=== PATIENT | female | born 1955 | race African-American/Black ===

== ENCOUNTER 2019-02-18 13:03 | Inpatient (IN) ==
[2019-02-18] MEDS ORDERED: BENADRYL IV ONE (13:39)
[2019-02-18] MEDS ORDERED: SOLU-MEDROL IV ONE (13:39)
[2019-02-18] MEDS ORDERED: NS 1,000 ML IV ONE (13:39)
[2019-02-18] MEDS ORDERED: TYLENOL PO ONE (13:47)
[2019-02-18] MEDS ORDERED: NS 500 ML IV ONE ×2 (13:47→14:59)
[2019-02-18 14:04] LABS: OCCULT BLOOD 1 POSITIVE (NEGATIVE)
[2019-02-18 14:08] LABS: AGAP 10; ALBUMIN 3.6 g/dL (3.5-5.0); ALKALINE PHOSPHATASE 167 U/L (32-104); BUN 7 mg/dL (8-22); CALCIUM 9.1 mg/dL (8.8-10.2); CHLORIDE 107 mmol/L (98-107); COSMO 275; CREATININE 0.7 mg/dL (0.5-0.9); ESTIMATED GFR > 60; GLUCOSE 95 mg/dL (70-104); GOT 27 U/L (10-30); POTASSIUM 3.9 mmol/L (3.5-5.1); SODIUM 139 mmol/L (136-145); TCO2 22 mmol/L (25-35); TOTAL PROTEIN 7.4 g/dL (6.3-8.3)
[2019-02-18 14:09] LABS: GPT 18 U/L (10-36)
[2019-02-18 14:45] LABS: BASO# 0.06 X1000 (0.0-0.2); BASO% 0.6 % (0.0-0.8); EOS# 0.08 X1000 (0.0-0.7); EOS% 0.9 % (0.0-10.0); HEMATOCRIT 13.2 % (37.0-47.0); HEMOGLOBIN 3.4 g/dL (12.0-16.0); IMM GRAN# 0.02 X1000 (0.0-0.04); IMM GRAN% 0.2 % (0.0-0.5); LYMPH% 39.4 % (20.5-51.1); MCH 22.2 PG (27-31); MCHC 25.8 g/dL (33-37); MCV 86.3 FL (81-99); MONO# 0.83 X1000 (0.11-0.59); MONO% 8.8 % (1.7-9.3); NEUT# 4.71 X1000 (1.4-6.5); NEUT% 50.1 % (42.2-75.2); PLT 219 X1000 (130-400); RBC 1.53 XMIL (4.2-5.4); RDW 18.7 % (11.5-14.5)
[2019-02-18 15:10] LABS: RETIC% 0.75 % (0.8-2.1); RETIC-HE 34.9 PG (28.2-36.6)
--- NOTE | 2019-02-18 15:12 | EKG Report ---
Test Performed on : 02/18/2019 1:27:53 PM Test Reason : syncope Blood Pressure : / mmHG Vent. Rate : 076 BPM Atrial Rate : 076 BPM P-R Int : 140 ms QRS Dur : 074 ms QT Int : 380 ms P-R-T Axes : 000 026 070 degrees QTc Int : 427 ms Normal sinus rhythm. Minimal voltage criteria for LVH, may be normal variant T wave abnormality, consider anterior ischemia Abnormal ECG When compared with ECG of 04-JAN-2018 09:33, T wave inversion now evident in Anterior leads Unconfirmed Result
--- NOTE | 2019-02-18 15:21 | PROVIDER DOCUMENTATION ---
This chart was entered by Mallory Moreau Scribe, acting as scribe for Morales Obrien MD. HPI-Syncope/Dizziness - General Chief Complaint: Syncope Stated Complaint: DIZZY / PASSED OUT Time Seen by Provider: 02/18/19 13:38 Source: patient, family Allergies/Adverse Reactions: Patient Allergies Allergy/AdvReac Type Severity Reaction Status Date / Time Penicillins AdvReac HIVES Verified 02/18/19 13:09 Home Medications: Home Medication List Medication Instructions Recorded Confirmed Last Taken Type Clonazepam 1 mg PO QHS 01/04/18 01/04/18 Unknown History Diphenhydramine [Benadryl] 25 mg PO QHS 01/04/18 01/04/18 Unknown History Escitalopram Oxalate [Lexapro] 20 mg PO DAILY 01/04/18 01/04/18 Unknown History Fluticasone/Salmet 250/50 INH 1 inh INH BID 01/04/18 01/04/18 Unknown History [Advair 250/50 Diskus] Gabapentin 600 mg PO QHS 01/04/18 01/04/18 Unknown History Pravastatin Sodium 40 mg PO QHS 01/04/18 01/04/18 Unknown History Ranitidine [Zantac] 150 mg PO DAILY 01/04/18 01/04/18 Unknown History Risperidone 3 mg PO QHS 01/04/18 01/04/18 Unknown History Tizanidine HCl 4 mg PO BID 01/04/18 01/04/18 Unknown History Trazodone HCl 150 mg PO QHS 01/04/18 01/04/18 Unknown History Albuterol Sulfate Inhaler 2 puff INH Q4H PRN PRN inhaler 01/06/18 Unknown Rx [Ventolin Hfa] Nicotine Patch [Nicoderm Patch] 21 mg TD DAILY PRN PRN patch.td24 01/06/18 Unknown Rx Pantoprazole [Protonix] 40 mg PO DAILY@0700 #30 tab 01/06/18 Unknown Rx Sucralfate [Carafate] 1 gm PO Q6H #120 tab 01/06/18 Unknown Rx - History of Present Illness-Syncope/Dizzy Nature of Presenting Problem: 64yof presents to ED cc syncope, dizziness, weakness and paleness well 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 Pt reports was outside and went to go inside, felt dizzy and fainted. Pt also reports a cough that she had had for months. Pt has had a blood transfusion 6 months ago. Pt has hx of COPD, HTN and anemia. Pt is afebrile and in no apparent distress upon exam. Onset/Duration: reports: just prior to arrival Timing: reports: still present Position/Activity at time of episode: reports: standing, activity Symptoms prior to episode: reports: lightheaded Context: reports: collapsed Loss of Consciousness: no loss of consciousness Location of injury. (If syncope resulted in an injury.): reports: RLE (small abrasion on payne), LLE (small abrasion on payne) Current Symptoms: reports: weakness, lightheaded, dizzy, pale Recently Seen Here or By Another Healthcare Provider: No - Dizziness Severity in ED: reports: mild Dizziness Related Current/Associated Symptoms: reports: weakness, lightheaded, dizzy, pale Modifying Factors: improves with: standing position Patient usually:: reports: walks without assistance Review of Systems - Adult - REVIEW OF SYSTEMS - ADULT Constitutional: reports: see HPI, fatique. denies: chills, fever Eyes: reports: no symptoms reported Ears, Nose, Mouth & Throat: reports: no symptoms reported Cardiovascular: reports: no symptoms reported Respiratory: reports: see HPI, cough. denies: shortness of breath Gastrointestinal: reports: no symptoms reported Genitourinary: reports: no symptoms reported Musculoskeletal: reports: no symptoms reported Integumentary: reports: no symptoms reported Neurological: reports: see HPI, dizziness/vertigo, syncope Psychiatric: reports: no symptoms reported Endocrine: reports: no symptoms reported Hematologic/Lymphatic: reports: no symptoms reported Allergic/Immunologic: reports: no symptoms reported All Other Systems: Reviewed and Negative Past History - Adult - PAST MEDICAL HISTORY-ADULT Review of Records: reports: Nursing Assessment Review, Medications Reviewed, Social history reviewed & non-contributory. Major Childhood Illnesses: reports: denies history Cardiovascular: reports: HTN, hyperlipidemia Respiratory: reports: COPD Gastrointestinal: reports: GERD Obstetrical/Gynecological: reports: denies history Genitourinary: reports: denies history Musculoskeletal: reports: denies history Neurological: reports: denies history Endocrine/Immune: reports: denies history, other (acute anemia and transfusions within past 6 months) Other Conditions: reports: denies history - PRIOR SURGERIES/PROCEDURES Surgical/Procedure History: reports: hysterectomy, BTL - IMMUNIZATION STATUS Childhood Immunizations: See Nurse Assessment Flu Vaccine: See Nurse Assessment - FAMILY HISTORY Family History: reviewed, not pertinent Physical Exam-General - PHYSICAL EXAM-ADULT Initial Vital Signs Reviewed: Yes - CONSTITUTIONAL General Appearance: appears well, alert, no apparent distress, thin. negative: anxious, combative - EYES Eyes: PERRL/EOMI, pale conjunctivae. negative: photophobia - HEAD, EARS, NOSE, MOUTH & THROAT HENMT: normocephalic/atraumatic, moist mucous membranes, normal ENT inspection. negative: angioedema - NECK Neck: non-tender, full range of motion, supple, normal inspection. negative: C- spine tenderness - RESPIRATORY Respiratory: chest non-tender, lungs clear, normal breath sounds. negative: wheezing - CARDIOVASCULAR Cardiovascular: normal peripheral pulses, regular rate, rhythm. negative: bradycardia, tachycardia - GASTROINTESTINAL (ABDOMEN) Abdominal Exam: normal bowel sounds, non tender, soft. negative: rebound - MUSCULOSKELETAL Extremity: normal inspection. negative: deformity - SKIN Integumentary: abrasion(s) (small, to both shins). negative: diaphoresis, ecchymosis - NEUROLOGIC Neurologic: baffle mounter II-XII nml as tested, grossly normal. negative: facial droop, focal weakness, motor weakness, sensory deficit - PSYCHIATRIC Psych/Mental Status: normal mood/affect, oriented x 3. negative: anxious, disheveled Progress - PLAN OF CARE/RESULTS Progress/Plan/Lab Results: Vital Signs - 8 hr 02/18/19 13:05 Temperature 98.6 F Pulse Rate 80 Respiratory Rate 18 Blood Pressure 81/32 O2 Sat by Pulse Oximetry 100 Laboratory Results - last 24 hr 02/18/19 02/18/19 02/18/19 13:25 13:25 13:25 WBC 9.40 RBC 1.53 L Hgb 3.4 L* Hct 13.2 L MCV 86.3 MCH 22.2 L MCHC 25.8 L RDW Std Deviation 18.7 H Plt Count 219 MPV 12.0 H Immature Gran % (Auto) 0.2 Neut % (Auto) 50.1 Lymph % (Auto) 39.4 [place] % (Auto) 8.8 Eos % (Auto) 0.9 Baso % (Auto) 0.6 Immature Gran # (Auto) 0.02 Neut # (Auto) 4.71 Lymph # (Auto) 3.70 H [place] # (Auto) 0.83 H Eos # (Auto) 0.08 Baso # (Auto) 0.06 Percent Retic 0.75 L Retic Hgb Equivalent 34.9 Sodium 139 Potassium 3.9 Chloride 107 Carbon Dioxide 22 L Anion Gap 10 BUN 7 L Creatinine 0.7 Estimated GFR/1.73 m2 > 60 BUN/Creatinine Ratio 10 Glucose 95 Calculated Osmolality 275 Calcium 9.1 Total Bilirubin 0.30 AST 27 ALT 18 Alkaline Phosphatase 167 H Total Protein 7.4 Albumin 3.6 Globulin 4.0 Albumin/Globulin Ratio 1.0 Stool Occult Blood 02/18/19 13:40 WBC RBC Hgb Hct MCV MCH MCHC RDW Std Deviation Plt Count MPV Immature Gran % (Auto) Neut % (Auto) Lymph % (Auto) [place] % (Auto) Eos % (Auto) Baso % (Auto) Immature Gran # (Auto) Neut # (Auto) Lymph # (Auto) [place] # (Auto) Eos # (Auto) Baso # (Auto) Percent Retic Retic Hgb Equivalent Sodium Potassium Chloride Carbon Dioxide Anion Gap BUN Creatinine Estimated GFR/1.73 m2 BUN/Creatinine Ratio Glucose Calculated Osmolality Calcium Total Bilirubin AST ALT Alkaline Phosphatase Total Protein Albumin Globulin Albumin/Globulin Ratio Stool Occult Blood POSITIVE A Orders Category Date Time Status Cardiac Monitoring DIRECTED Care 02/18/19 13:12 Active Nursing- MD Consult Request ROUTINE Care 02/18/19 15:02 Active Orthostatic Vital Signs NOW Care 02/18/19 13:14 Active Saline Loc NOW Care 02/18/19 13:15 Active Transfuse .Give-Transfuse Care 02/18/19 13:47 Active Transfuse .Give-Transfuse Care 02/18/19 14:59 Active Physician/Provider Consults Routine Cons 02/18/19 15:[address] ABDOMEN/PELVIS W/WO CONTRAS [CT] Stat Exams 02/18/19 14:58 Ordered CBC WITH DIFF [HEME] Stat Lab 02/18/19 13:25 Results CBC WITH NO DIFF [HEME] Timed Lab 02/18/19 21:00 Ordered CMP [COMPREHENSIVE METABOLIC PANEL] [CHEM] Stat Lab 02/18/19 13:25 Completed FERRITIN Stat Lab 02/18/19 13:25 Received FOLATE Stat Lab 02/18/19 13:25 Received LDH [CHEM] Stat Lab 02/18/19 13:25 Received LRPC (RED CELLS) [BBK] Stat Lab 02/18/19 13:25 Received OCCULT BLOOD SCREEN STOOL PL Stat Lab 02/18/19 13:40 Completed RETIC COUNT [HEME] Stat Lab 02/18/19 13:25 Completed TYPE & SCREEN [BBK] Stat Lab 02/18/19 13:25 Received UIBC W TOTAL IRON [CHEM] Stat Lab 02/18/19 13:25 Received VITAMIN B12 Stat Lab 02/18/19 13:25 Received 0.9% Sodium Chloride Inj [Ns] 1,000 ml Med 02/18/19 13:39 Discontinued IV 999 mls/hr 0.9% Sodium Chloride Inj [Ns] 500 ml Med 02/18/19 13:47 Discontinued IV As Directed mls/hr 0.9% Sodium Chloride Inj [Ns] 500 ml Med 02/18/19 14:59 Discontinued IV As Directed mls/hr Acetaminophen [Tylenol] Med 02/18/19 13:47 Discontinued 650 mg PO PREMED ONE Diphenhydramine [Benadryl] Med 02/18/19 13:39 Discontinued 25 mg IV NOW ONE Methylprednisolone Sod Succ [Solu-Medrol] Med 02/18/19 13:39 Discontinued 80 mg IV NOW ONE EKG [EKG] Stat Ther 02/18/19 13:12 Draft Transfer/Admit Order [TRANSFER] Routine Transfer 02/18/19 15:09 Ordered Result Diagrams: 02/18/19 13:25 02/18/19 13:25 - EKG 1 Time of EKG reading by physician:: 13:40 EKG Read and Signed by:: Morales Obrien EKG Interpretation (*Must complete 3 of following elements*): Abnormal (T wave abnormality consider anterior ischemia) Rate: 76 Rhythm: NSR QRS: LVH OK Interval: normal - CONSULTS/PCP/HOSPITALIST Notification #1 *Consult/PCP/Hospitalist*: Dr. Smith Time Discussed: 14:28 Consult Disposition: other (wants to and H & H on pt before he makes a decision) #2 Consult: Dr. Smith Time Discussed: 15:00 Consult Disposition: Admit (agreed to admit pt to ICU) Departure - Departure Date of Disposition Decision: 02/18/19 Time of Disposition Decision: 15:16 DIAGNOSIS: Anemia, Hypotension arterial GI bleed Qualifiers: GI bleed type/associated pathology: unspecified gastrointestinal hemorrhage type Qualified Code(s): K92.2 - Gastrointestinal hemorrhage, unspecified Disposition: ADMITTED INPATIENT 09 Certified Medical Emergency: Emergent Condition: Stable Additional Freetext Instructions: ED Follow Up Instructions: You have been treated by a care provider in the Emergency Department. These instructions are being provided to you so you can have an understanding of how to care for yourself upon discharge. Upon discharge from the Emergency Department, you are responsible for making arrangements for follow-up care by a physician of your choice. Take all prescribed medications as directed. Return to the Emergency Department immediately for any new or worsening symptoms. You may call the Physician Referral phone number at [phone] to obtain a list of Physicians who are taking new patients. Referrals and Follow-Ups: Johnathan Cheng MD [Primary Care Provider] - - Critical Care Note This patient required my direct & personal management of CC.: Yes Total Time (mins): 30 Critical Care Statement: This patient required my direct personal management to treat or rule out processes, the absence of which, could potentiallly result in sudden, clinically significant life or limb threatening deterioration. Attestation - Physician/ NESTOR Attestation Patient care was provided by Advanced Practice Provider:: No The physician spent face to face time with patient:: Yes Advanced Practice Provider documentation review:: Supervising physician onsite and consulted in the evaluation and care of this patient. The physician did have a face to face encounter with the patient. This chart was documented by the indicated scribe, (Mallory Moreau Scribe) and accurately reflects the services I performed and decisions made by me, Morales Obrien MD, as attested by the provider's signature.
[2019-02-18 15:22] LABS: IRON SATURATION 4 %; TIBC 421 ug/dL; TOTAL IRON 15 ug/dL (49-151); UNBOUND IRON 406 ug/dL (112-346)
--- NOTE | 2019-02-18 16:12 | Diag Imaging Result Doc PS360 ---
EXAM: CT ABD/PELVIS W/IV CONT ONLY HISTORY: gi bleeding TECHNIQUE: Routine with IV contrast. No enteric contrast. COMPARISON: None. FINDINGS: Lung bases are unremarkable liver, spleen, pancreas, and adrenal glands are unremarkable. There are small bilateral renal hypodensities compatible with bilateral simple renal cyst. No hydronephrosis. There are scattered calcific atherosclerotic disease. Mild aortic ectasia is noted. No aneurysm. No calcified gallstones. No mesenteric or retroperitoneal lymphadenopathy is appreciated. No evidence for bowel obstruction. No evidence for diverticulitis or colitis. There is mild stool burden. The appendix appears normal.. No evidence for acute appendicitis. Urinary bladder and reproductive organs are unremarkable. There is degenerative arthropathy lumbar spine. No focal lesion is identified. IMPRESSION: 1.Mild constipation. 2.No evidence for bowel obstruction. 3.No focal inflammatory change is identified. This exam was performed using automated exposure control, adjustment of mA or kV according to patient size, and/or use of iterative reconstruction technique. Electronically signed by Violet Hernandez 02/18/2019 4:10 PM
[2019-02-18] MEDS ORDERED: ZOFRAN IV PRN (16:14)
[2019-02-18] MEDS ORDERED: PROTONIX IV SCH (16:14)
[2019-02-18 16:25] LABS: LYMPHS 37 % (21-51); MONO 4 % (1-9); SEGS 59 % (42-75)
[2019-02-18 16:28] LABS: HYPOCHROM 1+
--- NOTE | 2019-02-18 19:40 | HISTORY AND PHYSICAL ---
PRIMARY CARE PROVIDER: Johnathan Cheng MD CHIEF COMPLAINT: Passed out 2 days ago and had nausea and vomiting. HISTORY OF PRESENT ILLNESS: Ms. Lupillo Serra is a 64-year-old, female with a medical history of GI bleed back in December of 2017 who was treated medically, recovered and went home. She presents now with a spell of syncope 2 days ago along with some brown emesis. She states that for at least a week she has been having some abdominal discomfort and dizzy spells every time she stands up. The abdominal discomfort is located in the left upper quadrant, is crampy, achy pains. She admits to having some constipation but a bowel movement every single day that is brown in color. She apparently actually has positive blood in her stool, despite her feeling like her stools have been brown. Her hemoglobin is 3.4 on admission. She is going to receive at least 4 units of packed red blood cells. She was hypotensive on admission. So she will be transferred to the ICU at [facility] for further treatment. PAST MEDICAL HISTORY: 1. COPD. 2. Hyperlipidemia. 3. Hypertension. 4. GI bleed. SURGICAL HISTORY: 1. Tubal ligation. 2. Tonsillectomy. 3. Tubal . SOCIAL HISTORY: She is a 2-pack per day smoker and has so for at least 45+ years. Denies any alcohol or illicit drug use. FAMILY HISTORY: She denies. ALLERGIES: Penicillin causes hives. HOME MEDICATIONS: She denies any blood thinners, ibuprofen as such. 1. Advair inhaled twice a day. 2. Cyclobenzaprine 10 mg p.o. twice a day p.r.n. 3. [place] 7.5 one tab p.o. twice a day p.r.n. 4. Albuterol 2 puffs inhaled every 4 hours. REVIEW OF SYSTEMS: Fourteen-point review of systems are complete and all were negative except those mentioned above in HPI. PHYSICAL EXAMINATION: VITAL SIGNS: Temperature 98.6 degrees, heart rate 80, respiratory rate 18, blood pressure 81/32 but at the bedside, it was in the 140s, O2 saturation 100% on room air. GENERAL: Ms. Lupillo Serra is a 64-year-old, female who is very pale to the appearance. She is alert and able to answer questions appropriately. HEENT: Atraumatic, normocephalic. Pupils equal, round and reactive to light. Extraocular movements intact. Mucous membranes are dry. Sclerae are pale. NECK: Trachea midline. CARDIOVASCULAR: S1, S2. Regular rate and rhythm. No rubs, gallops, murmurs. No lower extremity edema. +2 dorsalis and radial pulses. Negative JVD or carotid bruits. PULMONARY: Clear to auscultation. Bilateral breath sounds. No accessory muscle use or work of breathing noted. GASTROINTESTINAL: Soft, tender in the left upper quadrant. Positive bowel sounds x4 but hypoactive. EXTREMITIES: Moves all extremities equally. Full range of motion. NEUROLOGIC: A and O x3. Follows commands. Sensory is intact. SKIN: Warm, dry, intact and pale. LABORATORY DATA: White blood cells 9000, hemoglobin 3.4, hematocrit 13.2, platelet count 219,000. Sodium 139, potassium 3.9, BUN 7, creatinine 0.7, glucose 95, calcium 9.1, iron 15, total iron binding capacity is 421, iron saturation 4, unsaturated iron 406. Ferritin is pending. Bilirubin 0.3, AST 27, ALT 18, albumin 3.6, vitamin B12 585. Stool positive for blood. IMAGING: Abdominal and pelvic CT is pending but has been performed. EKG: Normal sinus rhythm, rate 76, QTc 427. ASSESSMENT AND PLAN: 1. Gastrointestinal bleed with acute blood loss anemia mixed with iron deficiency anemia. She is going to get 4 units of packed red blood cells. She is going to get IV Protonix 40 mg every 12 hours, and given the fact that she was hypotensive, she will be sent to the ICU for closer observation for the next few hours, and we will consult Gastroenterology, Dr. Ornelas. 2. Chronic obstructive pulmonary disease. Continue home medications. 3. Hyperlipidemia. Hold statin for now. 4. Hypertension. She was hypotensive, and we will hold antihypertensives for now. 5. Deep venous thrombosis prophylaxis. SCDs. 6. Tobacco abuse. Cessation discussed. Dictated by MARISEL Ponce for Gildardo Escalona MD Addendum: Patient seen and examined by myself. Agree with MARISEL note. It reflects my assessment and plan. Patient is being admitted to hospital for GI bleeding. She had one episode one year ago. Will transfer her to [facility], consult GI and put her on NPO after midnight. cc: MARISEL Ponce MD [facility]
[2019-02-18] MEDS: NS 1,000 ML IV SCH (19:49)
[2019-02-18] MEDS: SODIUM CHLORIDE 0.9% INJ SCH (19:56)
[2019-02-18 22:37] LABS: FERRITIN 10 ng/mL (13-150)
[2019-02-19] MEDS: PROTONIX 80 MG in NS 80 ML IV SCH ×3 (01:06→19:20)
[2019-02-19 01:35] LABS: HEMOGLOBIN 6.3 g/dL (12.0-16.0)
[2019-02-19 01:36] LABS: HEMATOCRIT 20.7 % (37.0-47.0); MCH 26.1 PG (27-31); MCHC 30.4 g/dL (33-37); MCV 85.9 FL (81-99); MPV 11.6 FL (7.4-10.4); RBC 2.41 XMIL (4.2-5.4); RDW 16.7 % (11.5-14.5); WBC 9.21 X1000 (4.8-10.8)
[2019-02-19] MEDS: NS 1,000 ML IV SCH ×3 (04:51→18:26)
[2019-02-19 06:10] LABS: HEMOGLOBIN 7.2 g/dL (12.0-16.0); MCH 27.6 PG (27-31); MCHC 31.3 g/dL (33-37); MCV 88.1 FL (81-99); MPV 12.5 FL (7.4-10.4); RBC 2.61 XMIL (4.2-5.4); RDW 16.2 % (11.5-14.5); WBC 8.34 X1000 (4.8-10.8)
[2019-02-19 06:29] LABS: AGAP 11; BUN 10 mg/dL (8-22); CALCIUM 9.7 mg/dL (8.8-10.2); CHLORIDE 112 mmol/L (98-107); COSMO 285; CREATININE 0.6 mg/dL (0.5-0.9); ESTIMATED GFR > 60; GLUCOSE 118 mg/dL (70-104); POTASSIUM 4.2 mmol/L (3.5-5.1); SODIUM 143 mmol/L (136-145); TCO2 20 mmol/L (25-35)
[2019-02-19] MEDS: MIRALAX PO SCH ×2 (10:05→20:27)
[2019-02-19] MEDS: ROBITUSSIN-AC PO PRN ×2 (14:57→20:33)
[2019-02-19] MEDS ORDERED: FLEXERIL PO PRN (15:18)
[2019-02-19] MEDS ORDERED: NORCO-7.5 PO PRN (15:18)
[2019-02-19] MEDS ORDERED: VENTOLIN HFA INH PRN (15:18)
[2019-02-19] MEDS ORDERED: FERRLECIT 125 MG in NS 100 ML IV ONE (15:19)
--- NOTE | 2019-02-19 15:32 | GASTROENTEROLOGY CONSULTATION ---
DATE: 02/19/2019 ATTENDING PHYSICIAN: Dr. Duffy. PRIMARY CARE DOCTOR: Dr. Johnathan Cheng. REASON FOR CONSULT: Severe anemia and syncope. HISTORY OF PRESENT ILLNESS: Ms. Serra is a 64-year-old female who was admitted on 02/18/2019 for passing out 2 days at home and had nausea and vomiting. According to the patient, she had a syncopal event two days ago along with coffee-ground emesis. She also has been having dizzy spells and abdominal discomfort every time she stands up. She complains of abdominal discomfort in the left upper quadrant. She denies vomiting any fresh blood. She also denies any recent rectal bleeding. Her admission hemoglobin was 3.4 g. She was given 4 units of blood transfusion. She was hypertensive on admission. She was given fluids. She is a smoker and she has history of COPD. Her last EGD and colonoscopy was done in [address] Chatterjee and it showed 1) evidence of diverticulosis in the colon, 2) esophagitis, 3) gastritis, and 4) polyp in the sigmoid colon, removed with snare cautery polypectomy. The pathology specimen at that time showed positive H. pylori gastritis and tubular adenoma in the sigmoid colon and transverse colon. The patient denies any history of NSAIDs. She is a 2 pack per day smoker for more than 45 years. Gastroenterology was consulted for further management. PAST MEDICAL HISTORY: COPD, esophagitis, gastritis, colon polyps, hyperlipidemia, chronic smoker, hypertension, GI bleed. PAST SURGICAL HISTORY: Tubal ligation, tonsillectomy, tubal pregnancies. SOCIAL HISTORY: She is a 2 pack-a-day smoker. She has been smoking 45 years. Denies any alcohol or illicit drug abuse. FAMILY HISTORY: Noncontributory. ALLERGIES: Penicillin. MEDICATIONS AT HOME: Include Advair inhalation, cyclobenzaprine, [place] 7.5 b.i.d., albuterol 2 puffs every 4 hours. REVIEW OF SYSTEMS: Denies any fevers, rigors, chills, chest pain, shortness of breath. Does complain of feeling weak and tired which is improving today. She does complain of having abdominal discomfort in the left upper quadrant along with emesis which was coffee ground. There was a question of blood in the stools per the records, but the patient denies seeing blood in the stools. She has some arthritis. She takes some tramadol and [place]. She is an avid smoker. She denies any other current neurological symptoms, although she had a syncopal episode 2 days ago at home. MEDICATIONS IN THE HOSPITAL: Include normal saline 75 mL/h, Zofran, Protonix b.i.d., MiraLAX 17 g p.o. b.i.d. She is currently on a Protonix drip which will be switched to b.i.d. Protonix tomorrow. She is currently on a clear liquid diet. PHYSICAL EXAMINATION: Vital signs: Temperature of 97.8, pulse of 75, respiratory rate of 19, blood pressure 130/56, saturating 99% on room air. Body weight of 151 pounds 11.2 ounces, BMI 23 kg/m2. General Appearance: Moderately built, moderately nourished, lying in bed, in no acute distress. HEENT: Positive pallor. No icterus. Pupils equal, reactive to light. Neck: Supple. Abdomen: Soft, nontender, nondistended. No guarding or rebound. Extremities: No cyanosis, clubbing. Neurologic: She is alert, awake, oriented x3. LABS: Her hemoglobin and hematocrit are 7.2 and 23, white count of 8.34, platelet count of 197,000. Hemoglobin and hematocrit on admission were 3.4 and 13.2. Her reticulocyte count was 0.75 which is low. Sodium 142, potassium 4.2, chloride 112, bicarb 29, anion gap 11, BUN of 10, creatinine 0.6, glucose of 118, calcium 9.7. AST 27, ALT 18, alkaline phosphatase 167, total protein 7.4, albumin of 3.6. B12 585, folate of 25.4. Stool occult blood was positive. CT scan and pelvis showed: 1. Mild constipation. 2. No evidence of bowel obstruction. 3. No focal inflammatory change identified. 4. Small bilateral renal cysts noted. 5. Scattered calcified atherosclerotic disease noted in the aorta. No calcified gallstones. No evidence of diverticulitis. 6. Degenerative arthropathy in the lumbar spine. IMPRESSION AND PLAN: 1. Syncopal episode, likely secondary to symptomatic anemia. This is being worked up by the primary care team. 2. Abdominal pain and coffee-ground emesis. We will schedule for EGD tomorrow. She will continue Protonix drip for today. We will make her n.p.o. past midnight. We will schedule for EGD tomorrow with Dr. Blanco. We will continue watch her hemoglobin and hematocrit and transfuse as needed. 3. Severe anemia. Continue to watch blood counts and transfuse as needed. 4. Chronic obstructive pulmonary disease. Patient will continue on nebulizer treatments. 5. Chronic smoker. Patient counseled to quit smoking. 6. Hypertension. This is being managed by the primary care team. 7. Constipation. We will start her on MiraLAX twice daily. 8. If the esophagogastroduodenoscopy is negative, the patient will need a hematological workup per the primary care team. 9. Deep vein thrombosis prophylaxis with SCD. We will follow along. The above plan was discussed with the patient and nurse at bedside and all questions answered. Please call us with any further questions. cc: MD Johnathan Wilde MD MTDD
--- NOTE | 2019-02-19 16:03 | PROGRESS NOTE ---
DATE: 02/19/2019 SUBJECTIVE: Patient has no major complaints. No further bleeding. OBJECTIVE: Vital Signs: Blood pressure 151/71, heart rate 75, respiratory 17. Cardiovascular: Regular rate and rhythm. Pulmonary: Bilateral breath sounds. Clear to auscultation. GI: Soft, nontender, nondistended. Bowel sounds are positive. LABORATORY DATA: Basic was normal. Hemoglobin and hematocrit has come up to 7 and 23, platelets 197. White count is 8. PROBLEM LIST: 1. Gastrointestinal bleed: Upper gastrointestinal bleed presumably. She is on proton pump inhibitor. We will continue to follow. Her hemoglobin and hematocrit has come up. We will continue to monitor hemoglobin and hematocrit closely. Planning for esophagogastroduodenoscopy tomorrow. 2. Chronic obstructive pulmonary disease. We will continue regular medications and monitor. 3. Iron deficiency anemia. I am suspicious that this is going to be a chronic cause, but we will continue to monitor, and she will need iron supplementation. DISPOSITION: Pending her GI status. We will continue to follow. cc: Jaime Duffy MD
[2019-02-19 18:53] LABS: HEMATOCRIT 25.7 % (37.0-47.0)
[2019-02-19 18:57] LABS: INR 1.15; PROTIME 14.9 Seconds (11.0-16.0)
[2019-02-19] MEDS: ADVAIR 250/50 DISKUS INH SCH (19:32)
[2019-02-20] MEDS: SODIUM CHLORIDE 0.9% INJ SCH ×2 (00:15→23:42)
[2019-02-20] MEDS: PROTONIX IV SCH ×3 (00:15→23:42)
[2019-02-20] MEDS: NS 1,000 ML IV SCH ×3 (05:10→21:38)
[2019-02-20 05:12] LABS: HEMATOCRIT 24.5 % (37.0-47.0); HEMOGLOBIN 7.8 g/dL (12.0-16.0); MCH 27.9 PG (27-31); MCHC 31.8 g/dL (33-37); MCV 87.5 FL (81-99); MPV 12.7 FL (7.4-10.4); RBC 2.8 XMIL (4.2-5.4); RDW 16.9 % (11.5-14.5); WBC 10.19 X1000 (4.8-10.8)
[2019-02-20 05:22] LABS: ALB/GLOB RATIO 0.9; ALBUMIN 3.3 g/dL (3.5-5.0); DIRECT BILIRUBIN 0.2 mg/dL (0.00-0.20); TOTAL BILIRUBIN 0.87 mg/dL (0.20-1.00); TOTAL PROTEIN 6.8 g/dL (6.3-8.3)
[2019-02-20 05:33] LABS: AGAP 9; BUN 8 mg/dL (8-22); CALCIUM 9.3 mg/dL (8.8-10.2); CHLORIDE 109 mmol/L (98-107); COSMO 278; CREATININE 0.7 mg/dL (0.5-0.9); ESTIMATED GFR > 60; GLUCOSE 76 mg/dL (70-104); POTASSIUM 3.2 mmol/L (3.5-5.1); SODIUM 141 mmol/L (136-145); TCO2 23 mmol/L (25-35)
[2019-02-20] MEDS ORDERED: ROBINUL ONE (06:05)
[2019-02-20] MEDS ORDERED: XYLOCAINE-MPF 2% ONE ×2 (06:05→08:17)
[2019-02-20] MEDS ORDERED: DIPRIVAN 1% ONE ×3 (06:06→08:16)
[2019-02-20] MEDS ORDERED: VENTOLIN HFA ONE (08:11)
[2019-02-20] MEDS: MIRALAX PO SCH ×2 (08:33→21:38)
--- NOTE | 2019-02-20 08:49 | ENDOSCOPY OPERATIVE NOTE ---
[facility] ENDOSCOPY OPERATIVE NOTE , PATIENT: Lupillo Serra I ADMISSION DATE: 02/20/2019 MR#: [id number] : 1955 [id number] EGD PROCEDURE REPORT PROCEDURE DATE: 02/20/2019 SURGEON: Alexis Blanco MD STATUS: inpatient THERMAL INTELLIGENCE ANALYST: PREOPERATIVE DIAGNOSIS: The patient is a 64 yr old female here for an EGD due to diagnostic procedur e, anemia, and weight loss. PROCEDURE PERFORMED: EGD, diagnostic MEDICATIONS: Per Anesthesia TOPICAL ANESTHETIC: none CONSENT: The patient understands the risks and benefits of the procedure and understands that these r isks include, but are not limited to: sedation, allergic reaction, infection, perforation and/or bleeding. Alternative means of evaluation and treatment include, among others: physical exam, x-rays, and/or surgical intervention. The patient elects to proceed with this endoscopic procedure. HISORY AND PHYSICAL: 02/20/2019 function. Hand hygiene and appropriate measures for infection prevention was taken. After the risks, benefits and alternatives of the procedure were thoroughly explained, Informed consent was verified, confirmed and timeout was successfully executed by the treatment team. The patient was anesthetized with topical anesthesia and the [id number] ([id number]) endoscope was introduced through the mouth and advanced to the second portion of the duoden um. Retroflexion was performed in the stomach and revealed a hiatal hernia. The gastroscope was then slowly withdrawn and removed. ESOPHAGUS: The mucosa of the esophagus appeared normal. The z-line was noted at 40cm from the incis ors. The z-line appeared normal. STOMACH: The stomach was normal. DUODENUM: The duodenum was normal. SPECIMENS REMOVED: No ADVERSE EVENTS: There were no complications. POSTOPERATIVE DIAGNOSIS: 1. The mucosa of the esophagus appeared normal 2. The z-line was noted at 40cm from the incisors 3. The stomach was normal 4. The duodenum was normal 5. No etiology of anemia found on EGD RECOMMENDATIONS: Advance diet as tolerated Outpatient colonoscopy in the next 1-2 weeks REPEAT EXAM: Alexis Blanco MD eSigned: Alexis Blanco MD 02/20/2019 8:48 AM cc: PATIENT NAME: Lupillo Serra I MR#: [id number]
[2019-02-20] MEDS: ADVAIR 250/50 DISKUS INH SCH ×2 (10:20→19:40)
[2019-02-20 18:37] LABS: HEMATOCRIT 28.3 % (37.0-47.0); HEMOGLOBIN 8.7 g/dL (12.0-16.0)
[2019-02-21 07:44] LABS: AGAP 9; BUN 9 mg/dL (8-22); CALCIUM 8.8 mg/dL (8.8-10.2); CHLORIDE 108 mmol/L (98-107); COSMO 282; CREATININE 0.6 mg/dL (0.5-0.9); ESTIMATED GFR > 60; GLUCOSE 77 mg/dL (70-104); POTASSIUM 3.4 mmol/L (3.5-5.1); SODIUM 143 mmol/L (136-145); TCO2 26 mmol/L (25-35)
[2019-02-21 07:55] LABS: RBC 2.69 XMIL (4.2-5.4); WBC 8.97 X1000 (4.8-10.8)
[2019-02-21 07:56] LABS: HEMATOCRIT 24.6 % (37.0-47.0); HEMOGLOBIN 7.6 g/dL (12.0-16.0); MCH 28.3 PG (27-31); MCHC 30.9 g/dL (33-37); MCV 91.4 FL (81-99); MPV 12.5 FL (7.4-10.4); RDW 17.4 % (11.5-14.5)
[2019-02-21] MEDS: ADVAIR 250/50 DISKUS INH SCH ×2 (08:31→19:06)
[2019-02-21] MEDS: MIRALAX PO SCH ×2 (09:45→21:13)
[2019-02-21] MEDS: PROTONIX IV SCH (12:17)
[2019-02-21] MEDS: NS 1,000 ML IV SCH (12:17)
[2019-02-21] MEDS: SODIUM CHLORIDE 0.9% INJ SCH (12:17)
[2019-02-21] MEDS ORDERED: FERRLECIT 125 MG in NS 100 ML IV ONE (14:00)
[2019-02-21] MEDS: ICAR-C PO SCH (14:11)
--- NOTE | 2019-02-21 14:41 | PROGRESS NOTE ---
DATE: 02/21/2019 SUBJECTIVE: The patient has no major complaints. OBJECTIVE: Vital Signs: Blood pressure 141/67, heart rate 80, respiratory rate 17, temperature 98.1, 94% on room air. Cardiovascular: Regular rate and rhythm. Pulmonary: Bilateral breath sounds clear to auscultation. GI: Abdomen is soft, nontender, and nondistended. Bowel sounds are positive. LABORATORY DATA: White count is 8. Hemoglobin and hematocrit are 7.6 and 24 which is stable from the last couple of days, still low but stable. PROBLEM LIST: 1. Gastrointestinal bleed, not otherwise specified. Hemoglobin and hematocrit have been fairly stable. There is no clear source of bleeding. We will continue PPI and follow. Gastroenterology feels like a colonoscopy can be done as an outpatient. The family is concerned that she will not make follow up because she does not have a car to get her to appointments. We will continue to monitor her hemoglobin and hematocrit another day and then discuss with Gastroenterology. 2. Chronic obstructive pulmonary disease, stable currently. 3. Iron deficiency anemia. We will supplement iron and follow. 4. Chronic cough. I am not clear what her source is. We will get a plain chest x-ray and follow. cc: Jaime Duffy MD
[2019-02-21] MEDS ORDERED: PRILOSEC PO SCH (21:00)
[2019-02-22 06:16] LABS: BASO# 0.03 X1000 (0.0-0.2); BASO% 0.3 % (0.0-0.8); EOS# 0.18 X1000 (0.0-0.7); EOS% 1.6 % (0.0-10.0); HEMOGLOBIN 8.3 g/dL (12.0-16.0); IMM GRAN# 0.02 X1000 (0.0-0.04); IMM GRAN% 0.2 % (0.0-0.5); LYMPH# 2.45 X1000 (1.2-3.4); LYMPH% 22.5 % (20.5-51.1); MCH 27.4 PG (27-31); MCHC 30.7 g/dL (33-37); MCV 89.1 FL (81-99); MONO# 0.81 X1000 (0.11-0.59); MONO% 7.4 % (1.7-9.3); MPV 12.5 FL (7.4-10.4); NEUT# 7.42 X1000 (1.4-6.5); PLT 149 X1000 (130-400); RBC 3.03 XMIL (4.2-5.4); RDW 17.4 % (11.5-14.5); WBC 10.91 X1000 (4.8-10.8)
[2019-02-22] MEDS: PRILOSEC PO SCH (06:21)
[2019-02-22 06:50] LABS: AGAP 11; BUN 6 mg/dL (8-22); CALCIUM 9.5 mg/dL (8.8-10.2); CHLORIDE 107 mmol/L (98-107); COSMO 285; CREATININE 0.5 mg/dL (0.5-0.9); ESTIMATED GFR > 60; GLUCOSE 82 mg/dL (70-104); POTASSIUM 3.3 mmol/L (3.5-5.1); SODIUM 145 mmol/L (136-145); TCO2 27 mmol/L (25-35)
[2019-02-22] MEDS: ADVAIR 250/50 DISKUS INH SCH ×2 (08:01→20:16)
[2019-02-22] MEDS: MIRALAX PO SCH ×2 (09:50→21:05)
[2019-02-22] MEDS: ICAR-C PO SCH (09:50)
[2019-02-22] MEDS ORDERED: KLOR-CON PO ONE (11:13)
--- NOTE | 2019-02-22 12:17 | Diag Imaging Result Doc PS360 ---
EXAM: CHEST-2 VIEWS INDICATION: cough TECHNIQUE: 2 views COMPARISON: 04/02/2018 FINDINGS: The lungs are grossly clear. There is no discrete pleural fluid collection or pneumothorax. The cardiomediastinal silhouette and central vasculature are grossly unremarkable. IMPRESSION: No evidence of acute pathology by plain radiograph. Electronically signed by Jc Quach 02/22/2019 12:15 PM
--- NOTE | 2019-02-22 15:23 | GASTROENTEROLOGY PROGRESS NOTE ---
DATE: 02/22/2019 SUBJECTIVE: I was asked by Dr. Duffy to see the patient for Dr. Ornelas and Dr. Blanco. The patient was admitted to the hospital on 02/18/2019 with complaints of syncopal episode and nausea and vomiting. She was found to have profound anemia. Her hemoglobin was 3.4 with hematocrit of 13.2. She underwent EGD by Dr. Blanco. EGD was essentially negative. It did not show any pathology that would explain her anemia. Her hemoglobin has gone up to 8.3 today after blood transfusions. She was resting comfortably in the bed. She did not have any GI complaints. She did have 1 bowel movement today and did not have any blood or mucus in her stool. It was not melenic. She was complaining of some lower abdominal discomfort, especially on the right side. She is tolerating diet. She has not had any nausea or vomiting. She did not have any hematemesis or coffee-ground emesis. OBJECTIVE: Vital signs: Today, temperature is 98.3 degrees, pulse is 81 per minute, breathing rate 20, blood pressure 147/63. HEENT: Conjunctivae are pale. Sclerae anicteric. Mouth with buccal mucosa dry. Neck: Neck is supple. No lymphadenopathy. Chest: Clear to auscultate. Heart: Heart sounds audible, no murmur. Abdomen: Full, soft, mildly tender in right lower quadrant area. No rebound tenderness or guarding noted. Bowel sounds are audible. DIAGNOSTIC DATA: Labs again reviewed which showed WBC of 10.01, hemoglobin 8.3, hematocrit 27.0. BUN and creatinine were 6 and 0.5, respectively. IMPRESSION: This is a 64-year-old female who presented with syncopal episode, was found profoundly anemic. EGD was negative. She apparently is scheduled to see Dr. Blanco as an outpatient for colonoscopy and further evaluation and treatment. Apparently there was question of possible logistic issues for her to have colonoscopy as an outpatient, and I was asked to see her to evaluate for possible endoscopy while she is here. After reviewing her chart and talking to the patient, she does not seem to be bleeding actively now that requires urgent intervention. Dr. Blanco and Dr. Ornelas will be available on Saturday. I will leave it up to them to decide whether they can do it while she is here or let her go home do it as an outpatient. I explained the findings and plan to the patient, and she understood. I answered all pertinent questions. I will be available if needed until Dr. Ornelas and Dr. Blanco pick her up on Saturday. The case was discussed with Dr. Duffy. cc: Tl Rice MD
--- NOTE | 2019-02-22 17:36 | PROGRESS NOTE ---
DATE: 02/22/2019 SUBJECTIVE: The patient has no major complaints. No further bleeding. OBJECTIVE: Vitals: Blood pressure is 147/63, heart rate 81, respiratory rate 20, temperature 98.3 degrees, 99% on room air. Cardiovascular: Regular rate and rhythm. Pulmonary: Bilateral breath sounds clear to auscultation. GI: Soft, nontender, nondistended. Bowel sounds are positive. LABS: White count 10, hemoglobin and hematocrit 8 and 27, platelets 149,000. Potassium 3.3. ASSESSMENT: 1. Gastrointestinal bleed. We will continue to monitor. Continue to follow hemoglobin and hematocrit. We still do not have a source of bleeding, but I guess she has not had a further drop. Apparently, there will be some difficulties with her getting this done as an outpatient, so I will discuss with GI doing in the next couple of days. 2. Chronic obstructive pulmonary disease, stable. 3. Iron deficiency anemia. Continue to follow. 4. Disposition. Pending her clinical status. cc: Jaime Duffy MD
[2019-02-23] MEDS: PRILOSEC PO SCH (06:07)
[2019-02-23 06:45] LABS: BASO# 0.03 X1000 (0.0-0.2); BASO% 0.3 % (0.0-0.8); EOS# 0.22 X1000 (0.0-0.7); EOS% 1.9 % (0.0-10.0); HEMATOCRIT 30.5 % (37.0-47.0); HEMOGLOBIN 9.4 g/dL (12.0-16.0); IMM GRAN# 0.03 X1000 (0.0-0.04); IMM GRAN% 0.3 % (0.0-0.5); LYMPH# 2.59 X1000 (1.2-3.4); LYMPH% 21.9 % (20.5-51.1); MCH 27.6 PG (27-31); MCHC 30.8 g/dL (33-37); MCV 89.7 FL (81-99); MONO# 0.77 X1000 (0.11-0.59); MONO% 6.5 % (1.7-9.3); NEUT# 8.21 X1000 (1.4-6.5); NEUT% 69.1 % (42.2-75.2); PLT 170 X1000 (130-400); RDW 18.2 % (11.5-14.5); WBC 11.85 X1000 (4.8-10.8)
[2019-02-23 07:09] LABS: AGAP 11; BUN 5 mg/dL (8-22); CALCIUM 9.8 mg/dL (8.8-10.2); CHLORIDE 107 mmol/L (98-107); COSMO 285; CREATININE 0.6 mg/dL (0.5-0.9); ESTIMATED GFR > 60; GLUCOSE 88 mg/dL (70-104); POTASSIUM 3.7 mmol/L (3.5-5.1); SODIUM 145 mmol/L (136-145); TCO2 27 mmol/L (25-35)
[2019-02-23] MEDS: ADVAIR 250/50 DISKUS INH SCH ×2 (07:45→19:31)
[2019-02-23] MEDS: ICAR-C PO SCH (09:06)
[2019-02-23] MEDS: MIRALAX PO SCH ×2 (09:06→22:33)
[2019-02-23] MEDS ORDERED: CITRATE OF MAGNESIA PO ONE (18:11)
--- NOTE | 2019-02-23 18:27 | PROGRESS NOTE ---
DATE: 02/23/2019 SUBJECTIVE: Patient has no major complaints. OBJECTIVE: Vital signs: Blood pressure is stable 131/60, heart rate of 82, respiratory 15, temperature 99.4 degrees, 99% on room air. Cardiovascular: Regular rate and rhythm. Pulmonary: Bilateral breath sounds. Clear to auscultation. GI: Soft, nontender, nondistended. Bowel sounds are positive. LABORATORY DATA: Hemoglobin and hematocrit is stable at a level of 9 and 30, white count 11.8. PROBLEM LIST: Gastrointestinal bleed, not otherwise specified. As far as we can tell that has stopped. Hemoglobin and hematocrit is stable. She has not had any further bloody bowel movement. Family is very adamant about getting source prior to discharge. We have had a prolonged conversation about that. Apparently, she has had this issue before and did not have a source at that time and family feels like she will have difficulty making her appointments. Discussed with them that possibly they could help her getting her appointments rather than keeping her in the hospital to get endoscopy done, but I will do a small prep today and have Gastroenterology evaluate her tomorrow. If they still feel she needs to go home then that is what we will do and we will try to make sure she keeps up her an outpatient appointment. Discharge anticipation tomorrow assuming no major issues overnight. cc: Jaime Duffy MD
[2019-02-24] MEDS ORDERED: FLEET ENEMA PR ONE (06:00)
[2019-02-24] MEDS: PRILOSEC PO SCH (06:29)
[2019-02-24 06:30] LABS: BASO# 0.03 X1000 (0.0-0.2); BASO% 0.3 % (0.0-0.8); EOS# 0.27 X1000 (0.0-0.7); EOS% 2.3 % (0.0-10.0); HEMATOCRIT 31.3 % (37.0-47.0); HEMOGLOBIN 9.6 g/dL (12.0-16.0); IMM GRAN# 0.03 X1000 (0.0-0.04); IMM GRAN% 0.3 % (0.0-0.5); LYMPH# 2.68 X1000 (1.2-3.4); LYMPH% 22.8 % (20.5-51.1); MCH 28.2 PG (27-31); MCHC 30.7 g/dL (33-37); MCV 91.8 FL (81-99); MONO% 7.7 % (1.7-9.3); MPV 13.1 FL (7.4-10.4); NEUT# 7.82 X1000 (1.4-6.5); NEUT% 66.6 % (42.2-75.2); PLT 162 X1000 (130-400); RBC 3.41 XMIL (4.2-5.4); RDW 19.7 % (11.5-14.5); WBC 11.73 X1000 (4.8-10.8)
[2019-02-24 06:46] LABS: AGAP 10; BUN 7 mg/dL (8-22); CHLORIDE 105 mmol/L (98-107); COSMO 285; CREATININE 0.6 mg/dL (0.5-0.9); ESTIMATED GFR > 60; GLUCOSE 96 mg/dL (70-104); POTASSIUM 3.9 mmol/L (3.5-5.1); SODIUM 144 mmol/L (136-145); TCO2 29 mmol/L (25-35)
--- NOTE | 2019-02-24 07:31 | Diag Imaging Result Doc PS360 ---
EXAM: CHEST-2 VIEWS 02/24/2019 HISTORY: hypoxia TECHNIQUE: PA and lateral chest COMMENT: There is no evidence of acute cardiac or pulmonary disease. Compared to 02/22/2019 there has been no appreciable change. IMPRESSION: Stable chest. Electronically signed by Suraj Dick 02/24/2019 7:28 AM
[2019-02-24] MEDS: ADVAIR 250/50 DISKUS INH SCH ×2 (08:08→19:30)
[2019-02-24] MEDS: MIRALAX PO SCH (09:04)
[2019-02-24] MEDS: ICAR-C PO SCH (09:04)
--- NOTE | 2019-02-24 11:23 | PROGRESS NOTE ---
DATE: 02/24/2019 SUBJECTIVE: Patient has no major complaints. OBJECTIVE: Vital Signs: Blood pressure 147/75, heart rate of 63, respiratory 16, temperature 98.6 degrees, and 94% on room air. Cardiovascular: Regular rate and rhythm. Pulmonary: Bilateral breath sounds. Clear to auscultation. GI: Abdomen was soft, nontender, and nondistended. Bowel sounds are positive. LABORATORY: White count 11, hemoglobin and hematocrit 9 and 31, and platelets 162,000. Basic is normal. PROBLEM LIST: 1. Gastrointestinal bleed. We will continue to follow. Hemoglobin and hematocrit is stable. Family is very adamant about getting workup prior to discharge. I explained to them even if we do a colonoscopy, it is not going to be guaranteed that we will find a source doing that. Logistically, it is going to be difficult for her to get that done as an outpatient. She does not have a car. I guess that is functional so she cannot get around. Despite the family being upset with her not having all the workup done here, it does not seem like they are also not willing to take her to her appointments. In any case, GI will evaluate today if they still feel that this can be done as an outpatient, which it certainly could be. There is no active bleeding at this point, and a colonoscopy may be low yield. Then, we will discharge her today on iron and follow. Anticipate discharge when available. 2. Symptomatic iron deficiency anemia. Her hemoglobin and hematocrit is improving. We will continue iron. 3. Chronic obstructive pulmonary disease appears to be compensated. We will continue to follow closely. cc: Jaime Duffy MD
[2019-02-24 15:23] LABS: URINE SOURCE CLEAN CATCH
[2019-02-24 15:42] LABS: BILIRUBIN URINE NEGATIVE (NEGATIVE); BLOOD URINE NEGATIVE (NEGATIVE); COLOR YELLOW; GLUCOSE URINE NEGATIVE (NEGATIVE); KETONE URINE NEGATIVE (NEGATIVE); LEUKOCYTES URINE NEGATIVE (NEGATIVE); NITRITE URINE NEGATIVE (NEGATIVE); PH URINE 8.5; PROTEIN URINE NEGATIVE (NEGATIVE); SP GRAVITY URINE 1.011; TURBIDITY URINE CLEAR (CLEAR); UROBILINOGEN URINE NORMAL (NORMAL)
[2019-02-24 15:44] LABS: UR EPITHELIAL CELLS <10 /HPF (<10); URINE BACTERIA NEGATIVE /HPF; URINE RBC <10 /HPF (<10); URINE WBC <10 /HPF (<10)
--- NOTE | 2019-02-24 17:22 | PROVIDER PROGRESS NOTE ---
Progress Note S: No acute overnight events. No complaints. O: Last Vital Signs Temp 99.6 F 02/24/19 15:16 Pulse 76 02/24/19 15:16 Resp 18 02/24/19 15:16 BP 156/75 02/24/19 15:16 Pulse Ox 97 02/24/19 15:16 Height 5 ft 7 in Weight 148 lb 10 oz GEN: awake, alert, NAD HEENT: anicteric, MMM NECK: supple, no jvd PULM: CTAB, no wheezing ABD: soft NT/ND EXT: no cce, nonfocal LABS: 02/24/19 02/24/19 05:42 05:42 WBC 11.73 H Hgb 9.6 L Plt Count 162 Sodium 144 Potassium 3.9 Chloride 105 Carbon Dioxide 29 Anion Gap 10 BUN 7 L Creatinine 0.6 A/P: Ms. Lupillo Serra is a 64 year old woman who was admitted after having syncopal effect in the setting of coffee ground emesis and profound YUMIKO. EGD on 02/20 was unrevealing. She has been transfused 4 units pRBCs without recurrent hematemesis. Family is requesting diagnostic colonoscopy be done in the hospital given logistics of bringing her for diagnostic procedure as outpatient. VSS. Hgb stable. # YUMIKO: unclear etiology; EGD on 02/20 normal; on iron; stopped PPI; will prep with 4L golytely today and plan for diagnostic colonoscopy tomorrow # Hematemesis: with coffee grounds; resolved; no further bleeding # COPD: stable # Constipation: patient received enemas and MgCitrate earlier Will follow with you. Please call with questions.
[2019-02-24] MEDS ORDERED: GOLYTELY PO ONE (18:00)
[2019-02-25] MEDS: ADVAIR 250/50 DISKUS INH SCH (07:32)
[2019-02-25] MEDS ORDERED: DIPRIVAN 1% ONE ×3 (09:12→09:46)
[2019-02-25] MEDS ORDERED: XYLOCAINE-MPF 2% ONE (09:13)
--- NOTE | 2019-02-25 10:02 | ENDOSCOPY OPERATIVE NOTE ---
[facility] ENDOSCOPY OPERATIVE NOTE , PATIENT: Lupillo Serra I ADM DATE: 02/25/2019 MR #: [id number] : 1955 COLONOSCOPY PROCEDURE REPORT PROCEDURE DATE: 02/25/2019 SURGEON: Alexis Blanco MD STATUS: inpatient FLOW SPECIALIST: PREOPERATIVE DIAGNOSIS: The patient is a 64 yr old female here for a colonoscopy due to iron deficie ncy anemia. PROCEDURE PERFORMED: Colonoscopy with snare polypectomy MEDICATIONS: Per Anesthesia PREP TYPE: GoLytely
[2019-02-25] MEDS ORDERED: PHENERGAN ONE (10:11)
[2019-02-25] MEDS: ICAR-C PO SCH (13:00)
[2019-02-25 14:20] VITALS: BP 152/90
--- NOTE | 2019-02-26 06:44 | DISCHARGE SUMMARY ---
ADMISSION DATE: 02/18/2019 DISCHARGE DATE: 02/25/2019 PROCEDURES: EGD and colonoscopy. CONSULTATIONS: Dr. Ornelas, Dr. Blanco, Gastroenterology. DISCHARGE DIAGNOSES: 1. Gastrointestinal bleed. 2. Symptomatic iron deficiency anemia. 3. Multiple sessile polyps, possible source of bleeding. 4. Chronic obstructive pulmonary disease, which was well controlled. ADMITTING DIAGNOSIS: Upper gastrointestinal bleed. HOSPITAL COURSE: Briefly this is a 64-year-old female, apparently she had GI bleed history in December 2017. She came in with syncope, reportedly some brown emesis, but the only thing she told me was that she had melena. Her hemoglobin this admission initially was 3.4. She received a total of 4 units of packed red blood cells I believe and her hemoglobin and hematocrit improved and kind of stabilized. She underwent endoscopy on the , which was normal, stomach, esophagus, duodenum. There was no evidence of bleeding. At that point her hemoglobin and hematocrit had stabilized, although it was going up and down a bit, 7, 8, 7, 8, 7.6, 8 and eventually was a level of 9 and 30. There is going to be difficulty getting her set up as an outpatient and with an unclear source of bleeding, we went ahead and progressed towards doing a colonoscopy, which actually did show potential source of bleeding. There was no active bleeding, but she had multiple sessile polyps, 10 were resected, sessile and pedunculated polyps per Dr. Blanco. She was doing well after the procedure, advanced her diet and anticipate discharge later today. Her iron testing showed a low iron with a level of 15. TIBC was normal. Iron saturation was 4% and her ferritin was 10. She was placed on IV iron and subsequently also Icar-C. Her hemoglobin and hematocrit at the time of discharge was 9.6 and 31, that was yesterday, on the and is stable. DISCHARGE CONDITION: Stable. DISCHARGE MEDICINES: Advair 250/50 inhaled b.i.d., cyclobenzaprine 10 b.i.d. p.r.n., Maynard p.r.n., Icar-C 1 daily, and Ventolin 2 q.4 p.r.n. dyspnea. RECOMMENDATIONS: Would recommend follow up CBC in [address] Cheng. Follow up with Dr. Blanco, Dr. Ornelas in 2 to 4 weeks to evaluate for biopsies. TIME SPENT: 35 minute discharge. cc: Jaime Duffy MD
== END 2019-02-25 15:29 | disposition home or self-care (01) | DRG 394 ==
LOC: P.ED 13:03 → SUATTDRO 18:12 → ICU 18:12 → 2N 02-20 14:34 → 3N 02-21 15:54
PROVIDERS: ATTEND Internal Medicine
PROC: EN.HEAT (2019-02-25 09:12)